=== PATIENT | female | born 1995 | race Caucasian/White ===

== ENCOUNTER 2017-07-19 14:05 | Outpatient (CLI) | payer BC ==
--- NOTE | 2017-07-19 21:24 | Non Stress Test Report ---
Non Stress Test Datetime Report Generated by CPN: 07/19/2017 21:24 DEMOGRAPHIC EGA NST: 38.3 INDICATION Indication for Study: Ordered by Provider MONITORING Monitor Explained: Monitor Explained; Test Explained; Patient Verbalized Understanding Time on Monitor: 07/19/2017 14:38 Time off Monitor: 07/19/2017 15:04 NST Duration: 26 NST INTERVENTIONS NST Interventions: PO Hydration; Reposition Patient Physician Notified NST: DrHowie Kleler BABY A: [id number] BABY A Movement : Present Contraction Frequency : x2 FHR Baseline : 140 Accelerations : 15X15 Decelerations : None Variability : Moderate 6-25bpm NST Review: Meets Criteria for Reactive NST NST Review and Verified By : Hector Dobson RN NST Results: Non-Reactive NST REPORT Report Trigger: Send Report
== END 2017-07-19 15:08 | disposition home or self-care (01) ==
LOC: LC 14:05
PROVIDERS: ATTEND Student in an Organized Health Care Education/Training Program
PROC: 4A1HXCZ Monitoring of Products of Conception, Cardiac Rate, External Approach (ICD-10-PCS; principal; 2017-07-19)
DX: O36.8130 Decreased fetal movements, third trimester, not applicable or unspecified (principal); Z3A.38 38 weeks gestation of pregnancy
CPT/HCPCS: 59025

== ENCOUNTER 2017-08-01 01:14 | Inpatient (IN) | payer BC ==
[2017-08-01] MEDS ORDERED: RINGERS SOLUTION,LACTATED 1,000 ML IV ONE (01:23)
[2017-08-01] MEDS ORDERED: RINGERS SOLUTION,LACTATED 1,000 ML IV PRN (01:23)
[2017-08-01 01:49] LABS: APPEARANCE,URINE CLOUDY; BILIRUBIN,URINE NEGATIVE (NEGATIVE); COLOR,URINE YELLOW; GLUCOSE, URINE NEGATIVE (NEGATIVE); KETONES,URINE TRACE mg/dL (NEGATIVE); LEUKOCYTE ESTERASE,URINE LARGE (NEGATIVE); NITRITE,URINE NEGATIVE (NEGATIVE); PROTEIN,URINE 30 mg/dL (NEGATIVE); URINE SPECIFIC GRAVITY 1.021; UROBILINOGEN,URINE NEGATIVE mg/dL (<2.0)
[2017-08-01 02:02] LABS: ABSOLUTE BASOPHILS # (AUTO) 0.1 10^3/uL (0.0-0.2); ABSOLUTE EOSINOPHILS # (AUTO) 0.1 10^3/uL (0.0-0.6); ABSOLUTE LYMPHOCYTES (AUTO) 2.4 10^3/uL (0.5-4.7); ABSOLUTE MONOCYTES (AUTO) 0.9 10^3/uL (0.1-1.4); ABSOLUTE NEUT (AUTO) 10.1 10^3/uL (1.7-8.2); BASOPHILS % (AUTO) 0.6 % (0-2); EOSINOPHILS % (AUTO) 0.9 % (0-6); HEMATOCRIT 32.4 % (36.0-47.0); LYMPHOCYTES % (AUTO) 17.8 % (13-45); MEAN CORPUSCULAR HEMOGLOBIN 28.8 pg (27.0-33.4); MEAN CORPUSCULAR HGB CONC 33.8 g/dL (32.0-36.0); MEAN CORPUSCULAR VOLUME 85 fl (80-97); MONOCYTES % (AUTO) 6.5 % (3-13); PLATELET COUNT 267 10^3/uL (150-450); RED BLOOD COUNT 3.81 10^6/uL (3.72-5.28); RED CELL DISTRIBUTION WIDTH 14.4 % (11.5-14.0); SEGMENTED NEUTROPHILS % (AUTO) 74.2 % (42-78); TOTAL CELLS COUNTED % (AUTO) 100 %; WHITE BLOOD COUNT 13.6 10^3/uL (4.0-10.5)
[2017-08-01] MEDS ORDERED: DINOPROSTONE 10 MG VAGINAL INSERT.SR ONE (02:35)
[2017-08-01 02:46] LABS: URINE AMPHETAMINES SCREEN NEGATIVE; URINE BARBITURATES SCREEN NEGATIVE; URINE BENZODIAZEPINES SCREEN NEGATIVE; URINE COCAINE SCREEN NEGATIVE; URINE MARIJUANA (THC) SCREEN NEGATIVE; URINE METHADONE SCREEN NEGATIVE; URINE PHENCYCLIDINE SCREEN NEGATIVE
[2017-08-01] MEDS ORDERED: ZOLPIDEM TARTRATE 5 MG TABLET ONE (05:04)
--- NOTE | 2017-08-01 10:03 | L&D Progress Notes ---
PROGRESS NOTES Datetime Report Generated by CPN: 08/01/2017 10:02 PROGRESS NOTE Impression: Reassuring Heart Rate Plan: Continue Present Management; Cervical Ripening Informed Consent Obtained: Vaginal Delivery Informed Consent Obtained: Vaginal Delivery; Risks, Benefits and Alternatives Discussed Vital Signs : Reviewed; Within Normal Limits Comment: [id number], Cat 2 strip, variable and late, readjusted position, irregular uc's, now Cat 1 VAGINAL EXAM Dilatation: 1 Effacement: 0 Station: -3 Contractions: irreg MEMBRANES Membranes: Intact Membranes: Intact FETUS A Monitoring: External US Variability: Moderate 6-25bpm Decelerations: Late; Variable Estimated Weight (gm): 4092 Presentation: Vertex SIGNATURE SIGNATURE: ,[id number] SIGNATURE: ,[id number] Assignment: Princess Jc MD Signature: with User ID: [email or web address] : with User ID: [email or web address]
--- NOTE | 2017-08-01 15:06 | L&D Progress Notes ---
PROGRESS NOTES Datetime Report Generated by CPN: 08/01/2017 15:05 PROGRESS NOTE Comment: Cervidil out, OOB to shower and eat, irreg uc's. Cat 1 strip MEMBRANES Membranes: Intact FETUS A FHR - Baseline: 150 Monitoring: External US Variability: Moderate 6-25bpm Accelerations: 15X15 Decelerations: None FETUS C SIGNATURE: [id number];10,[id number] Assignment: Princess Jc MD Signature: with User ID: Sal : with User ID: Sal
--- NOTE | 2017-08-01 16:11 | L&D Progress Notes ---
PROGRESS NOTES Datetime Report Generated by CPN: 08/01/2017 16:10 PROGRESS NOTE Impression: Reassuring Heart Rate Procedures: Sterile Vag Exam Plan: Continue Present Management; Induction Informed Consent Obtained: Vaginal Delivery Comment: VE = 2-3/60/vtx/post/-2, + cervical change, discussed with DrHowie Jc, will start Pitocin MEMBRANES Membranes: Intact FETUS A Monitoring: External US FHR Category: Category I FETUS C SIGNATURE: [id number];[id number] Assignment: Princess Jc MD Signature: with User ID: Sal : with User ID: Sal
[2017-08-01] MEDS ORDERED: OXYTOCIN/NORMAL SALINE 20 UNIT/1,000 ML RTUINJ IV PRN (16:31)
[2017-08-01] MEDS ORDERED: LIDOCAINE 1% INJ-PF (10 MG/ML) 30 ML SDV ONE (17:03)
[2017-08-01] MEDS ORDERED: OXYTOCIN/NORMAL SALINE 20 UNIT/1,000 ML RTUINJ ONE (17:03)
[2017-08-01] MEDS ORDERED: MISOPROSTOL 0.2 MG TABLET ONE (17:03)
[2017-08-01] MEDS ORDERED: MISOPROSTOL 0.1 MG TABLET PO ONE (21:46)
[2017-08-01] MEDS ORDERED: MISOPROSTOL 0.1 MG TABLET PV ONE (21:49)
[2017-08-01] MEDS ORDERED: MISOPROSTOL 0.1 MG TABLET ONE (22:46)
[2017-08-02] MEDS ORDERED: MISOPROSTOL 0.1 MG TABLET ONE ×3 (03:01→03:17)
[2017-08-02] MEDS ORDERED: MISOPROSTOL 0.1 MG TABLET PV ONE (03:10)
[2017-08-02] MEDS ORDERED: MISOPROSTOL 0.1 MG TABLET PO ONE (03:11)
[2017-08-02] MEDS ORDERED: OXYTOCIN/NORMAL SALINE 20 UNIT/1,000 ML RTUINJ ONE (05:09)
[2017-08-02] MEDS ORDERED: EPHEDRINE SULFATE INJ 50 MG/1 ML AMPULE ONE (05:09)
[2017-08-02] MEDS ORDERED: FENTANYL/BUPIVACAINE/NS/PF 200 MCG/100 ML RTUINJ EPI ONE (05:10)
[2017-08-02] MEDS ORDERED: BUPIVACAINE HCL 0.25 % INJ/PF (2.5 MG/1 ML) 30 ML VIAL ONE (05:10)
[2017-08-02] MEDS ORDERED: MAGNESIUM HYDROXIDE SUSP 30 ML UDCUP PO PRN (09:19)
[2017-08-02] MEDS ORDERED: OXYTOCIN/NORMAL SALINE 20 UNIT/1,000 ML RTUINJ IV PRN (09:19)
[2017-08-02] MEDS ORDERED: PROMETHAZINE HCL 25 MG TABLET PO PRN (09:19)
[2017-08-02] MEDS ORDERED: PROMETHAZINE HCL INJ 25 MG/1 ML VIAL IV PRN (09:19)
[2017-08-02] MEDS ORDERED: BENZOCAINE/MENTHOL AEROSOL SPRAY 56 ML TOP PRN (09:19)
[2017-08-02] MEDS ORDERED: PROMETHAZINE HCL 25 MG SUPP.RECT PR PRN (09:19)
[2017-08-02] MEDS ORDERED: MEASLES,MUMPS&RUBELLA VACC/PF 0.5 ML VIAL SUBCUT PRN (09:19)
[2017-08-02] MEDS ORDERED: PSEUDOEPHEDRINE HCL 30 MG TABLET PO PRN (09:19)
[2017-08-02] MEDS ORDERED: GLYCERIN/WITCH HAZEL LEAF 1 EACH MED..PAD TP PRN (09:19)
[2017-08-02] MEDS ORDERED: ZOLPIDEM TARTRATE 5 MG TABLET PO PRN (09:19)
[2017-08-02] MEDS ORDERED: ACETAMINOPHEN 650 MG SUPP.RECT PR PRN (09:19)
[2017-08-02] MEDS ORDERED: NA PHOS,M-B/NA PHOS,DI-BA (ADULT) 133 ML ENEMA PR PRN (09:19)
[2017-08-02] MEDS ORDERED: DIBUCAINE 1% OINTMENT 28 GM TP PRN (09:19)
[2017-08-02] MEDS ORDERED: DIPH/PERTUSS(ACELL)/TETANUS VAC/PF 0.5 ML SYR (>=10YO) IM PRN (09:19)
[2017-08-02] MEDS ORDERED: DIPHENHYDRAMINE HCL 25 MG CAPSULE PO PRN (09:19)
[2017-08-02] MEDS ORDERED: IBUPROFEN 800 MG TABLET ONE ×2 (09:27→18:10)
--- NOTE | 2017-08-02 10:44 | Warning Signs in Babies ---
VOD Warning Signs Datetime Report Generated by [facility]: 08/02/2017 10:44 VOD#608 -Warning Signs in Babies: Viewed with Parent(s)/Family (08/02/2017 10:30:Shira Pedroza RN)
[2017-08-02] MEDS ORDERED: ACETAMINOPHEN 325 MG TABLET ONE (12:13)
[2017-08-02] MEDS ORDERED: ACETAMINOPHEN WITH CODEINE #3 TABLET ONE (12:14)
[2017-08-02] MEDS: ACETAMINOPHEN WITH CODEINE #3 TABLET PO PRN ×2 (12:15→23:23)
--- NOTE | 2017-08-02 14:12 | Delivery Summary ---
Del Sum A-C Datetime Report Generated by CPN: 08/02/2017 14:12 DELIVERY PERSONNEL DELIVERY PERSONNEL: [id number] Delivery Doctor:: Cj Greer MD Labor and Delivery Nurse:: Shira Pedroza RNdata capture specialist Nurse:: YOHANA Kothari Director Of Global Talent/EQUIPMENT MAINTENANCE TECHNICIAN: Joelle Umanaliza EQUIPMENT MAINTENANCE TECHNICIAN II MATERNAL INFORMATION Delivery Anesthesia: Epidural Medications After Delivery: Pitocin Bolus-Please Comment Meds After Delivery Comment: pitocin 20 units in 1 L NS bolusing per order Estimated Blood Loss (ml): 200 Maternal Complications: None Provider Comments: pt delivered a viable female at 9:09 am apgars 9/9 delivered an intact placenta at 9:12 90 sec delayed cord clampimg no tears LABOR SUMMARY EDC: 07/30/2017 00:00 No. Babies in Womb: 1 Attempted: No Labor Anesthesia: Epidural LABOR INFORMATION Reason for Induction: Maternal Diabetes Reason for Induction- Other: GDM diet controlled Onset of Labor: 08/02/2017 06:45 Complete Dilatation: 08/02/2017 08:12 Cervical Ripening Agents: Cervidil; Cytotec @ Other Ripening Agents: Cytotec 50mcg PO, Cytotec 25mcg PV given Oxytocin: Induction Group B Beta Strep: Negative Antibiotics # of Doses: 0 Steroids Given: None Reason Steroids Not Administered: Not Applicable MEMBRANES Membranes Rupture Method: Spontaneous Rupture of Membranes: 08/02/2017 04:54 Length of Rupture (hr): 4.25 Amniotic Fluid Color: Clear Amniotic Fluid Amount: Moderate Amniotic Fluid Odor: Normal STAGES OF LABOR Stage 1 hr: 1 Stage 1 min: 27 Stage 2 hr: 0 Stage 2 min: 57 Stage 3 hr: 0 Stage 3 min: 3 Total Time in Labor hr: 2 Total Time in Labor min: 27 VAGINAL DELIVERY Episiotomy: None Laceration #1: None Laceration Extension #1: N/A Laceration Repair: Not Applicable Sponge Count Correct: N/A Sharps Count Correct: N/A CSECTION DELIVERY Primary Indication: N/A Secondary Indication: N/A CSection Incidence: N/A Labor: N/A Elective: N/A CSection Incision: N/A BABY A INFORMATION Delivery Date/Time: 08/02/2017 09:09 Method of Delivery: Vaginal Born in Route : No : N/A Forceps: N/A Vacuum Extraction: N/A Shoulder Dystocia : No PRESENTATION/POSITION BABY A Presentation: Cephalic Cephalic Presentation: Vertex Vertex Position: Right Occipital Anterior Breech Presentation: N/A PLACENTA INFORMATION BABY A Placenta Delivery Time : 08/02/2017 09:12 Placenta Method of Delivery: Spontaneous Placenta Status: Delivered SCORES BABY A Heart Rate 1 min: >100 bpm Resp Effort 1 min: Good Cry Reflex Irritability 1 min: Cough or Sneeze or Pulls Away Muscle Tone 1 min: Active Motion Color 1 min: Body [place], Extremities Blue Resuscitation Effort 1 min: Tactile Stimulation SCORE 1 MIN: 9 Heart Rate 5 min: >100 bpm Resp Effort 5 min: Good Cry Reflex Irritability 5 min: Cough or Sneeze or Pulls Away Muscle Tone 5 min: Active Motion Color 5 min: Body [place], Extremities Blue Resuscitation Effort 5 min: N/A SCORE 5 MIN: 9 Resuscitation Effort 10 min: N/A INFANT INFORMATION BABY A Gestational Age at Delivery: 40.3 Gestational Status: Full Term- 39- 40.6 Weeks Infant Outcome : Liveborn Infant Condition : Stable Sex: Female IDENTIFICATION BABY A Verification Date/Time: 08/02/2017 09:44 ID Band Number: [id number] Mother's Name Verified: Yes Infant RN Verifying : C. [place], RN Additional Verifying Personnel: WILBER Victor, RN WEIGHT/LENGTH BABY A Infant Birthweight (gm): 3965 Infant Weight (lb): 8 Infant Weight (oz): 12 Length (in): 20.50 Length (cm): 52.07 CORD INFORMATION BABY A No. Cord Vessels: 3 Nuchal Cord : N/A Cord Blood Taken: Yes-For Eval (Mom's Blood Type - or O+) Infant Suction: None ASSESSMENT BABY A Infant Complications: None Physical Findings at Delivery: Within Normal Limits Infant Respirations: Appears Normal Skin to Skin: Yes Skin to Skin Time (min): 60 Pediatric Clinical Nurse Specialist/ALS Called : No Care By: K Cesar RNC Transferred To: Remains with Mother BABY B INFORMATION : N/A SIGNATURES Signature: with User ID: [email or web address]
[2017-08-02] MEDS: IBUPROFEN 800 MG TABLET PO SCH (18:11)
--- NOTE | 2017-08-02 20:41 | Admission Physical ---
Datetime Report Generated by CPN: 08/02/2017 20:41 CURRENT ADMISSION Chief Complaint: Scheduled Induction of Labor Indication for Induction: Maternal Diabetes Indication for Induction: Term, Intrauterine ; No Active Labor; Intact Membranes; Induction of Labor Admit Plan: Admit to Unit; Initiate Labor Induction Protocol ALLERGIES Medication Allergies: No Medication Allergies: No Known Allergies (05/01/2015) Latex: No Latex Allergies Food Allergies: N/A Environmental Allergies: N/A OBSTETRICAL HISTORY EDC: 07/30/2017 00:00 : 2 Para: 1 Term: 1 : 0 SAB: 0 IAB: 0 Ectopic: 0 Livin Cesareans: 0 VBACs: 0 Multiple Births: 0 Gestational Diabetes: Yes Rh Sensitization: No Incompetent Cervix: No GISSELL: No Infertility: No ART Treatment: No Uterine Anomaly: No IUGR: No Hx Previous C/S: No Macrosomia: No Hx Loss/Stillborn: No PIH: Yes Hx : No Placenta Previa/Abruption: No Depression/PP Depression: Yes PTL/PROM: Yes Post Hemorrhage: No Current Procedures: Ultrasound; NST Obstetrical History Comments: G1 - 2014, Boy, 41 weeks 7 lb 13 oz G2 - Current , GDM SEE RECORDS Alcohol: No Marijuana : No Cocaine: No Other Illicit Drugs: No Cigarettes: Never Smoker. [id number] MEDICAL HISTORY Diabetes: Yes Diabetes Type: Gestational Diabetes Blood Transfusion: No Pulmonary Disease (Asthma, TB): No Breast Disease: No Hypertension: Yes Fabrication Inspector Surgery: No Heart Disease: No Hosp/Surgery: Yes (Annotations: Data stored by N on behalf of user) Autoimmune Disorder: No Anesthetic Complications: No Kidney Disease: No Abnormal Pap Smear: Yes Neuro/Epilepsy: No Psychiatric Disorders: No Other Medical Diseases: No Hepatitis/Liver Disease: No Significant Family History: No Varicosities/Phlebitis: No Trauma/Violence : No Thyroid Dysfunction: No Medical History Comments: PIH with first , face surgery after being bit by dog as a child, appy as a child, wisdom teeth out, PPD with tx G1. abn pap with normal repeat INFECTIOUS HISTORY Gonorrhea: No Genital Herpes: No Chlamydia: No Tuberculosis: No Syphilis: No Hepatitis: No HIV/AIDS Exposure: No Rash or Viral Illness: No HPV: No PHYSICAL EXAM General: Normal HEENT: Normal Neurologic: Normal Thyroid: Deferred Heart: Normal Lungs: Normal Breast: Deferred Back: Normal Abdomen: Normal Genitourinary Exam: Normal Extremities: Normal DTRs: Normal Pelvic Type: Adequate Vital Signs: Reviewed VAGINAL EXAM Dilatation: 1 Effacement: 0 Station: -3 Contraction Comments: irreg MEMBRANES Membranes: Intact Membranes: Intact Membranes: Intact Membranes: Intact FETUS A EGA: 40.2 Monitoring: External US FHR- Baseline: 125 Variability: Moderate 6-25bpm Accelerations: 15X15 Decelerations: None FHR Category: Category I Estimated Weight (gm): 4092 Presentation: Vertex Admit Comment: 22yo at 40+2ega presents for IOL due to A1GDM. Pelvis proven to 7#13oz. EFW 9# on 07/26. o/w uncomplicated. GBS negative. Cvx 1/0/-3 and cervidil placed. Anticipate . Anticipate . PLANS FOR LABOR AND DELIVERY Labor and Delivery: None Pain Management: Epidural Feeding Preference: Breast Benefit of Breast Feed Discussed: Yes Circumcision: N/A INFORMED CONSENT Informed Consent Obtained: Vaginal Delivery Informed Consent Obtained: Vaginal Delivery Informed Consent Obtained: Vaginal Delivery; Risks, Benefits and Alternatives Discussed Signature: with User ID: [email or web address]
[2017-08-02] MEDS: DOCUSATE SODIUM 100 MG CAPSULE PO SCH (23:17)
[2017-08-02] MEDS: PRENATAL VITAMIN W DHA CAPSULE PO SCH (23:17)
[2017-08-02] MEDS: SENNOSIDES/DOCUSATE 8.6-50 MG 1 EACH TABLET PO SCH (23:17)
[2017-08-02] MEDS: FAMOTIDINE 20 MG TABLET PO SCH (23:17)
[2017-08-02] MEDS: FERROUS SULFATE 325 MG TABLET PO SCH (23:17)
[2017-08-03] MEDS: IBUPROFEN 800 MG TABLET PO SCH ×3 (02:25→17:22)
[2017-08-03] MEDS ORDERED: ACETAMINOPHEN WITH CODEINE #3 TABLET PO PRN (02:35)
[2017-08-03] MEDS: FERROUS SULFATE 325 MG TABLET PO SCH ×2 (09:44→17:21)
[2017-08-03] MEDS: FAMOTIDINE 20 MG TABLET PO SCH ×2 (09:44→21:00)
[2017-08-03] MEDS: DOCUSATE SODIUM 100 MG CAPSULE PO SCH ×2 (09:45→17:21)
[2017-08-03] MEDS: SENNOSIDES/DOCUSATE 8.6-50 MG 1 EACH TABLET PO SCH (09:45)
[2017-08-03] MEDS: PRENATAL VITAMIN W DHA CAPSULE PO SCH (09:45)
[2017-08-03 09:51] LABS: HEMOGLOBIN 10.2 g/dL (12.0-15.5); MEAN CORPUSCULAR HEMOGLOBIN 29.1 pg (27.0-33.4); MEAN CORPUSCULAR HGB CONC 33.9 g/dL (32.0-36.0); MEAN CORPUSCULAR VOLUME 86 fl (80-97); PLATELET COUNT 209 10^3/uL (150-450); RED CELL DISTRIBUTION WIDTH 14.4 % (11.5-14.0); WHITE BLOOD COUNT 13.2 10^3/uL (4.0-10.5)
--- NOTE | 2017-08-03 13:26 | PDOC PROGRESS REPORT ---
Subjective-OB Progress Note for:: 08/03/17 Subjective: 22yo s/p ppd 1. Voiding, ambulating and without difficulty. Physical Exam (OB) Vital Signs: Temp Pulse Resp BP Pulse Ox 98.2 F 87 17 117/62 99 08/03/17 07:47 08/03/17 07:47 08/03/17 07:47 08/03/17 07:47 08/03/17 07:47 - General General Appearance: Appears well In distress: None - PIH/Pre-Eclampsia Headache: Absent Epigastric Pain: No Visual Changes: No - Episiotomy/Laceration Site Condition: N/A - Lochia Lochia Amount: Scant < 10 ml Lochia Color: Rubra/Red - Abdomen Description: Soft, Round Hernia Present: No Fundal Description: Firm, Midline Fundal Height: u/u - u/2 - Respiratory Respiratory Status: No respiratory distress - Extremities Upper extremity: Normal inspection Lower extremities: Normal inspection - Neurological Cognition: Normal Orientation: AAOx4 - Psychological Associated symptoms: Normal affect, Normal mood Objective-Diagnostic Laboratory: 08/03/17 09:32 08/03/17 09:32 WBC 13.2 H RBC 3.50 L Hgb 10.2 L Hct 30.0 L MCV 86 MCH 29.1 MCHC 33.9 RDW 14.4 H Plt Count 209 Assessment and Plan(PN) - Assessment and Plan (1) Acute blood loss anemia Is this a current diagnosis for this admission?: Yes (2) Normal vaginal delivery Is this a current diagnosis for this admission?: Yes (3) Gestational diabetes mellitus in childbirth, diet controlled Is this a current diagnosis for this admission?: Yes - Time Spent with Patient Time with patient: 15-25 minutes Medications reviewed and adjusted accordingly: Yes - Disposition Anticipated Discharge: Home Within: within 24 hours
[2017-08-04] MEDS: IBUPROFEN 800 MG TABLET PO SCH ×2 (02:37→10:15)
[2017-08-04 08:46] VITALS: BP 116/73
[2017-08-04] MEDS: FERROUS SULFATE 325 MG TABLET PO SCH (10:15)
[2017-08-04] MEDS: DOCUSATE SODIUM 100 MG CAPSULE PO SCH (10:16)
[2017-08-04] MEDS: PRENATAL VITAMIN W DHA CAPSULE PO SCH (10:16)
[2017-08-04] MEDS: SENNOSIDES/DOCUSATE 8.6-50 MG 1 EACH TABLET PO SCH (10:16)
[2017-08-04] MEDS: FAMOTIDINE 20 MG TABLET PO SCH (10:16)
--- NOTE | 2017-08-04 10:40 | PDOC DISCHARGE SUMMARY ---
Final Diagnosis Discharge Date: 08/04/17 - Final Diagnosis (1) Acute blood loss anemia Is this a current diagnosis for this admission?: Yes (2) Gestational diabetes mellitus in childbirth, diet controlled Is this a current diagnosis for this admission?: Yes (3) Gestational hypertension Is this a current diagnosis for this admission?: Yes (4) Normal vaginal delivery Is this a current diagnosis for this admission?: Yes Discharge Data - Discharge Medication Prescriptions: Ferrous Sulfate [Feosol 325 mg Tablet] 325 mg PO BID #60 tablet Ibuprofen [Motrin 800 mg Tablet] 800 mg PO Q8A #60 tablet Home Medications: No122/Iron/Folic Acid [ Multi Tablet] 1 tab PO DAILY 04/07/15 Ferrous Sulfate [Feosol 325 mg Tablet] 325 mg PO BID #60 tablet 08/04/17 Ibuprofen [Motrin 800 mg Tablet] 800 mg PO Q8A #60 tablet 08/04/17 Gestational Age: 40.3 Reason(s) for Admission: Induction of Labor, Gestional Diabetes Admission Note: ghtn Procedures: NST Intrapartum Procedure(s): Spontaneous Vaginal Delivery - Diagnosis Test Laboratory: Temp Pulse Resp BP Pulse Ox 97.9 F 81 15 116/73 99 08/04/17 08:50 08/04/17 08:50 08/04/17 08:50 08/04/17 08:50 08/04/17 08:50 08/01/17 08/01/17 08/03/17 01:30 01:47 09:32 RBC 3.81 3.50 L Hgb 11.0 L 10.2 L Hct 32.4 L 30.0 L Urine Opiates Screen NEGATIVE - Discharge information/Instructions Discharge Activity: Activity As Tolerated, Balance Activity w/Rest, No Lifting Over 10 Pounds, No Lifting/Push/Pulling, Pelvic Rest, Slowly Increase Activity, No tub bath Discharge Diet: Regular Disposition: HOME, SELF-CARE Follow up with: [facility] in: 1, Weeks - bp check
== END 2017-08-04 11:55 | disposition home or self-care (01) | DRG 775 ==
LOC: LR 01:14 → 2S 08-02 20:35
PROVIDERS: ADMIT Obstetrics & Gynecology Gynecology; ATTEND Obstetrics & Gynecology Gynecology
PROC: 10E0XZZ Delivery of Products of Conception, External Approach (ICD-10-PCS; principal; 2017-08-02)
DX: O24.420 Gestational diabetes mellitus in childbirth, diet controlled (principal); D62 Acute posthemorrhagic anemia; O90.81 Anemia of the puerperium; Z3A.40 40 weeks gestation of pregnancy; Z37.0 Single live birth
CPT/HCPCS: 36415; 80307; 81005; 85025; 85027; 86592; 86850; 86900; 86901; J2590; J3490